=== PATIENT | female | born 1985 | race Caucasian/White ===

== ENCOUNTER → 2017-10-10 | Outpatient (CLI) | payer OTHER, MEDICAID ==
[~2017-10-10] MED LIST: BENTYL20 MG PO; BIRTH CONTROL PILLS; COLACE100 MG; MACROBID 100 M100 M1 PO; MEDROLDOSEPACK PO; MULTIVITAMINS1 EAC7; NAPROSYN250 MG PO; NOHOMEMEDICATIONS; NORCO 5-325 TA1 EACH PO; NORFLEX100 MG PO; PREDNISONE 10 M10 M1 PO; RANITIDINE 150150 MG PO; TESSALON200 MG PO; TRAMADOL 50 MG50 MG PO; VICODIN ES 7.51 EACH PO; WELLBUTRIN 100100 M1; XANAX 0.5 MG0.5 MG PO; ZANAFLEX4 M1 PO; ZOFRAN4 MG PO
== END ==
LOC: M.RAD 13:06
DX: M54.12 Radiculopathy, cervical region (principal); M79.89 Other specified soft tissue disorders; R20.0 Anesthesia of skin

== ENCOUNTER → 2019-04-16 | Outpatient (CLI) | payer OTHER, MEDICAID | LOC: M.MRI 16:10 | DX: M54.2 Cervicalgia (principal); M54.5 Low back pain; G89.29 Other chronic pain; M12.88 Other specific arthropathies, not elsewhere classified, other specified site ==